=== PATIENT | female | born 1970 | race African-American/Black ===

== ENCOUNTER 2018-03-17 14:11 | Emergency (ER) | payer MEDICARE, MEDICAID ==
[~2018-03-17] VITALS: Ht 154.9 cm; Wt 111.1 kg
[2018-03-17 19:02] LABS: CLARITY URINE CLEAR (CLEAR); COLOR URINE YELLOW (YELLOW); KETONES URINE NEGATIVE (NEGATIVE); LEUKOCYTE ESTERASE URINE TRACE (NEGATIVE); NITRITE URINE NEGATIVE (NEGATIVE); OCCULT BLOOD URINE NEGATIVE (NEGATIVE); PROTEIN URINE NEGATIVE (NEGATIVE); UROBILINOGEN URINE 0.2 E.U./dL (0.2-1.0)
[2018-03-17 19:31] LABS: BASOPHILS % 1.7 % (0.0-2.0); EOSINOPHILS % 0.5 % (0.0-5.0); HEMATOCRIT. 42.7 % (36.0-48.0); HEMOGLOBIN. 14.4 g/dL (12.0-16.0); MEAN CORPUSCULAR VOLUME 85.9 fL (81.0-99.0); MEAN PLATELET VOLUME 8.2 fl (7.4-10.4); MONOCYTES % 4.1 % (2.0-8.0); NEUTROPHILS % 49.7 % (40.0-76.0); PLATELET 371 x1000/uL (130-400); RED BLOOD CELL COUNT 4.97 mill/uL (4.2-5.4); RED CELL DISTRIBUTION WIDTH 14.4 % (11.6-14.6)
[2018-03-17 19:33] LABS: INR 1.1; PROTHROMBIN TIME 10.7 sec (9.1-11.1)
[2018-03-17 19:38] LABS: CHLORIDE 103 mEq/L (98-107)
[2018-03-17] MEDS ORDERED: KETOROLAC 60MG/2ML VIAL IM STA (19:53)
[2018-03-17] MEDS ORDERED: METOCLOPRAMIDE HCL 10MG/2ML VIAL IM ONE (20:00)
[2018-03-17 21:19] VITALS: BP 155/90
== END 2018-03-17 21:21 | disposition home or self-care (01) ==
LOC: ER 14:11
DX: R51 Headache (principal); I10 Essential (primary) hypertension; K02.9 Dental caries, unspecified; R11.0 Nausea; Z88.0 Allergy status to penicillin
CPT/HCPCS: 36415; 70450; 71045; 80053; 81003; 84484; 85025; 85610; 96372; 99285; J1885; J2765

== ENCOUNTER 2018-05-04 19:04 | Emergency (ER) | payer OTHER, MEDICAID ==
[~2018-05-04] VITALS: Ht 154.9 cm; Wt 109.0 kg
[2018-05-04] MEDS ORDERED: IBUPROFEN 600MG TABLET PO STA (20:10)
[2018-05-04 20:58] LABS: HEMATOCRIT. 38.4 % (36.0-48.0); HEMOGLOBIN. 13.1 g/dL (12.0-16.0); LYMPHOCYTES % 43.1 % (20.0-50.0); MEAN CORPUSCULAR HEMOGLOBIN 28.6 pg (28.0-32.0); MONOCYTES % 4.8 % (2.0-8.0); NEUTROPHILS % 48.1 % (40.0-76.0); PLATELET 328 x1000/uL (130-400); RED BLOOD CELL COUNT 4.57 mill/uL (4.2-5.4)
[2018-05-04 21:04] LABS: CHLORIDE 107 mEq/L (98-107)
[2018-05-04 22:50] LABS: CLARITY URINE CLEAR (CLEAR); COLOR URINE YELLOW (YELLOW); KETONES URINE NEGATIVE (NEGATIVE); LEUKOCYTE ESTERASE URINE 1+ (NEGATIVE); NITRITE URINE NEGATIVE (NEGATIVE); OCCULT BLOOD URINE NEGATIVE (NEGATIVE); PROTEIN URINE NEGATIVE (NEGATIVE); SPECIFIC GRAVITY URINE 1.006 (1.005-1.030); UROBILINOGEN URINE 0.2 E.U./dL (0.2-1.0)
[2018-05-04] MEDS ORDERED: KETOROLAC 60MG/2ML VIAL IM ONE (23:15)
[2018-05-04] MEDS ORDERED: KETOROLAC 15MG/ML VIAL IV ONE (23:15)
[2018-05-05 00:26] VITALS: BP 103/67
== END 2018-05-05 00:26 | disposition home or self-care (01) ==
LOC: ER 19:04
DX: N30.00 Acute cystitis without hematuria (principal); R55 Syncope and collapse; I10 Essential (primary) hypertension; M19.90 Unspecified osteoarthritis, unspecified site; Z86.73 Personal history of transient ischemic attack (TIA), and cerebral infarction without residual deficits; Z88.0 Allergy status to penicillin; Z88.8 Allergy status to other drugs, medicaments and biological substances
CPT/HCPCS: 36415; 80053; 81003; 85025; 93005; 96374; 99285; J1885